=== PATIENT | male | born 1975 | race Caucasian/White ===

== ENCOUNTER 2021-09-12 18:52 | Emergency (ER) | payer OTHER ==
[~2021-09-12 18:52] MED LIST: CLEOCIN 150MG150 MG PO; CYCLOBENZAPRINE5 MG PO; IBUPROFEN800 MG PO; ZOFRAN ODT 4 MG4 MG SL
[2021-09-13 05:31] LABS: HEMOGLOBIN 14.3 gm/dl (14.0-17.5); RED BLOOD COUNT 3.96 M/UL (4.20-5.50); WHITE BLOOD COUNT 9.3 K/UL (4.5-11.0)
[2021-09-13 05:33] LABS: BUN/CREATININE RATIO 10 (0-10)
== END 2021-09-13 03:29 | disposition home or self-care (01) ==
LOC: ER1 18:52
PROVIDERS: Emergency Medicine; Physician Assistant
DX: H93.8X3 Other specified disorders of ear, bilateral (principal); R42 Dizziness and giddiness; F17.210 Nicotine dependence, cigarettes, uncomplicated; I10 Essential (primary) hypertension
CPT/HCPCS: 70496; 70498; 71045; 80053; 80307; 81001; 82550; 82553; 83874; 84439; 84443; 84484; 85025; 87086; 96374; 96375; 99284; Q9967